=== PATIENT | male | born 1950 | race Caucasian/White ===

== ENCOUNTER 2025-06-18 06:51 | Day surgery (SDC) | payer MEDICARE ==
[~2025-06-18] VITALS: Ht 170.2 cm; Wt 91.8 kg
[2025-06-18] VITALS (21 sets, daily range): BP systolic 118–199; BP diastolic 59–114
[~2025-06-18 06:51] MED LIST: ALBU8HFA2 INH; AMIODARONE HCL100 MG PO; AMLO5; CeFAZolin Sodium 2,000 MG in NS 100 ML IV SCH; Chlorhexidine Mouth Care 15 ML UDC MT SCH; Flonase 0.05% N16 GM; GLUC500 PO; MAGNESIUM PO; METO25 PO; MULVITA PO; NITROGLYCERIN0.4 M2 SL; Prinivil10 MG PO; Ropivacaine 0.5% HCl/Pf 123.125 MG,EPINEPHrine HCL 0.25 MG,Ketorolac Tromethamine 15 MG... INFIL SCH; Tranexamic Acid 100 ML IV SCH; VOLTAREN ARTHRI20 GM TOP; XARELTO20 MG PO
--- NOTE | 2025-06-18 07:30 | NUR ---
AMBULATORY INTO [facility]. PT REPORTS 5/10 GENERALIZED PAIN. PT IS [place] AND HE LEFT HIS HEARING AIDES AT HOME. HISTORY AND ALLERGIES REVIEWED. LUNGS CLEAR. HR 52. HEART SOUNDS REGULARLY IRREGULAR. PT HAS HX OF AFIB WITH 2 UNSUCCESSFUL ABLATIONS. PT DENIES CP OR SOB. NPO STATUS CONFIRMED. CHLORHEXIDINE SHOWER AND WIPES X 2. PT BELONGINGS IN [facility].
[2025-06-18] MEDS ORDERED: FentaNYL Citrate 50 MCG/ML 2 ML Injection ONE ×2 (07:51→11:29)
[2025-06-18] MEDS ORDERED: HYDROmorphone HCl/Pf 1MG SYR IV PRN ×3 (09:40→11:05)
[2025-06-18] MEDS ORDERED: HydrALAZINE HCl 20 MG / ML 1ML Vial IV PRN (09:40)
[2025-06-18] MEDS ORDERED: FentaNYL Citrate 50 MCG/ML 2 ML Injection IV PRN ×2 (09:40→09:45)
[2025-06-18] MEDS ORDERED: Ondansetron HCl 2 MG / ML 2ML Vial IV PRN ×2 (09:40→11:10)
[2025-06-18] MEDS ORDERED: Albuterol 2.5 MG/3 ML VIAL INH PRN (09:45)
[2025-06-18] MEDS ORDERED: ePHEDrine Sulfate 50 MG/ML 1ML Injection IV PRN (09:45)
[2025-06-18] MEDS ORDERED: Metoclopramide HCl 5MG / ML 2ML Vial IV PRN ×2 (09:45→11:10)
--- NOTE | 2025-06-18 10:34 | NUR ---
06/18/25 1033 Andrez,Estefania SPINAL BLOCK COMPLETED BY UPON ENTRY TO OR.
[2025-06-18] MEDS ORDERED: Fluticasone 0.05% Nasal Spray PRN (11:00)
[2025-06-18] MEDS ORDERED: Magnesium Hydroxide Conc 10 ML UDC PO PRN (11:10)
--- NOTE | 2025-06-18 11:28 | NUR ---
1107 - PT TO PACU, A&O, TALKING WITH STAFF. WEAKLY WIGGLING TOES. VS CONSISTANT W OR, ANESTH REPORT SOME REACTIVE TACHYCARDIA, NO CONCERNS AT THIS TIME. 1130 - ADMIN 25 MCG FENT FOR 4/10 PAIN.
[2025-06-18] MEDS ORDERED: HYDROmorphone HCl/Pf 1MG SYR ONE (11:42)
[2025-06-18] MEDS ORDERED: Ketorolac Tromethamine 15mg Vial IV SCH (12:00)
--- NOTE | 2025-06-18 12:24 | NUR ---
POST-OP PATIENT TO ROOM @1205, R KNEE DRESSING IS C/D/I. DECREASED SENSATION TO LA LE. TXA AND TORADOL GIVEN. DENIES N/V. PAIN IS 3/10. ICE AND SCDS, AND NAZANIN HOSE IN PLACE. HR NORA IN THE 40 AND 50S, PATIENT HAS HX OF A-FIB. DENIES SOB, CHEST PAIN/ PRESSURE. CALL LIGHT IN REACH. SPOUSE IN ROOM
[2025-06-18] MEDS ORDERED: CeFAZolin Sodium 2,000 MG in NS 100 ML IV SCH (16:50)
--- NOTE | 2025-06-18 17:03 | NUR ---
DISCHARGE WORKS WITH THERAPY, UP IN CHAIR, VOIDING, TOLEATING CL. PAIN IS MANAGED. ICE MACHINE PACKED ALL INSTRUTIONS READ AND SIGNED. IV TAKEN OUT INTACT. PATIENT VSS. PATIENT TAKEN OUT TO PRIVATE CAR.
[2025-06-19] MEDS ORDERED: Multivitamins 1 Tab PO SCH (09:00)
== END 2025-06-18 17:07 | disposition home or self-care (01) ==
LOC: ORSCMMR 06:51 → ORD 08:15 → ORSCMMR 08:15 → SURS 12:07 → ORSCMMR 17:07
PROVIDERS: Orthopaedic Surgery
PROC: 0SRC0JA Replacement of Right Knee Joint with Synthetic Substitute, Uncemented, Open Approach (ICD-10-PCS; principal; 2025-06-18 08:15)
DX: M17.11 Unilateral primary osteoarthritis, right knee (principal); I10 Essential (primary) hypertension; J45.909 Unspecified asthma, uncomplicated; I48.91 Unspecified atrial fibrillation; Z79.899 Other long term (current) drug therapy
CPT/HCPCS: 73560-RT; 97110; 97116; 97162; A9270; C1713; C1776; J0690; J0735; J1171; J1885; J2405; J2704; J2795; J3010; J7120

== ENCOUNTER 2025-08-20 06:21 | Day surgery (SDC) | payer MEDICARE ==
[2025-08-20] VITALS (12 sets, daily range): BP systolic 159–216; BP diastolic 59–105
[~2025-08-20] VITALS: Ht 170.2 cm; Wt 84.6 kg
[~2025-08-20 06:21] MED LIST changes: +ALBU90OI INH; +Amlodipine Bes2.5 MG PO; -CeFAZolin Sodium 2,000 MG in NS 100 ML IV SCH; -Chlorhexidine Mouth Care 15 ML UDC MT SCH; +NITR.4SL SL; -Ropivacaine 0.5% HCl/Pf 123.125 MG,EPINEPHrine HCL 0.25 MG,Ketorolac Tromethamine 15 MG... INFIL SCH; -Tranexamic Acid 100 ML IV SCH
[2025-08-20] MEDS ORDERED: FentaNYL Citrate 50 MCG/ML 2 ML Injection ONE ×2 (07:31→08:03)
[2025-08-20] MEDS ORDERED: FentaNYL Citrate 50 MCG/ML 2 ML Injection IV PRN ×2 (07:45→07:50)
[2025-08-20] MEDS ORDERED: HYDROmorphone HCl/Pf 1MG SYR IV PRN ×2 (07:50)
[2025-08-20] MEDS ORDERED: Labetalol HCL 5 MG/ML 4ML Injection (Single Dose) IV PRN (07:50)
[2025-08-20] MEDS ORDERED: Ondansetron HCl 2 MG / ML 2ML Vial IV PRN (07:50)
[2025-08-20] MEDS ORDERED: Labetalol HCL 5 MG/ML 4ML Injection (Single Dose) ONE (08:01)
[2025-08-20] MEDS ORDERED: HYDROmorphone HCl/Pf 1MG SYR ONE (08:03)
[2025-08-20] MEDS ORDERED: Ketorolac Tromethamine 30mg Vial ONE (08:03)
[2025-08-20] MEDS ORDERED: OxyCODONE 5 mg/Acetamin 325 mg TABLET PO PRN (08:15)
--- NOTE | 2025-08-20 09:21 | NUR ---
Discharge instructions reviewed with patient. Patient verbalizes understanding. Copy given to patient to take home. Pt medicated before discharge. Ice pack provided. Discussed with about high BP, ok to discharge. Patient States Post-Procedure ride home has been arranged. Discharged via wheelchair to private car for ride home.
== END 2025-08-20 09:32 | disposition home or self-care (01) ==
LOC: ORSCMMR 06:21 → ORD 08:00 → ORSCMMR 08:00
PROVIDERS: Orthopaedic Surgery
PROC: 0SSCXZZ Reposition Right Knee Joint, External Approach (ICD-10-PCS; principal; 2025-08-20 07:30)
DX: T84.82XA Fibrosis due to internal orthopedic prosthetic devices, implants and grafts, initial encounter (principal); Z96.651 Presence of right artificial knee joint; T84.092A Other mechanical complication of internal right knee prosthesis, initial encounter; I10 Essential (primary) hypertension; I48.91 Unspecified atrial fibrillation; Z79.01 Long term (current) use of anticoagulants; G47.33 Obstructive sleep apnea (adult) (pediatric); Z79.899 Other long term (current) drug therapy
CPT/HCPCS: 73560-RT; A9270; J1171; J1885; J2704; J3010; J7120